=== PATIENT | male | born 1980 | race Caucasian/White ===

== ENCOUNTER 2019-10-30 18:28 | Emergency (ER) | payer OTHER ==
[2019-10-30 18:44] VITALS: BMI 26.6
--- NOTE | 2019-10-30 20:26 | PDOC ---
History of Present Illness - General History Source: Patient Exam Limitations: No Limitations - History of Present Illness Initial Comments: Pt is a 39 yo M, Greek-speaking, with no significant PMH, who is presenting with complaints of L testicular pain and swelling since this morning. Pt states the pain started around 8 am, and is worsened when he is walking. Pt took motrin at 9am with minimal relief. Pt has never had this pain before. Pt denies any fevers/chills, headache, vision changes, syncope, chest pain, palpitations, SOB, nausea/vomiting, abdominal pain, urinary symptoms, diarrhea/constipation, or leg swelling. Allergies: NKDA PCP: None Social: Pt denies any cigarette, alcohol, or drug use. Pt denies any recent travel or sick contacts. Surgical: no relevant history. Family: no relevant history. 10/30/19 22:10 10/30/19 22:12 <Alexandra Garg - Last Filed: 10/31/19 03:01> <Helga Culver - Last Filed: 10/31/19 20:40> - General Chief Complaint: Pain Stated Complaint: ABD PAIN Time Seen by Provider: 10/30/19 20:18 Past History - Travel Traveled outside of the country in the last 30 days: No Close contact w/someone who was outside of country & ill: No - Past Medical History COPD: No - Immunization History Immunization Up to Date: Yes - Psycho Social/Smoking Cessation Hx Smoking History: Never smoked Hx Alcohol Use: No Drug/Substance Use Hx: No <Alexandra Garg - Last Filed: 10/31/19 03:01> <Helga Culver - Last Filed: 10/31/19 20:40> - Past Medical History Allergies/Adverse Reactions: Allergies Allergy/AdvReac Type Severity Reaction Status Date / Time No Known Allergies Allergy Verified 10/30/19 18:42 Home Medications: Ambulatory Orders Acetaminophen [Tylenol] 650 mg PO PRN 10/31/19 Amoxicillin/Potassium Clav [Augmentin 875-125 Tablet] 1 each PO BID #14 tablet 10/31/19 Abd/GI Specific PMHX - Complaint Specific PMHX Colitis: No Diverticulitis: No Gall Bladder Disease: No GERD: No Hepatitis: No Irritable Bowel Synd (IBS): No Pancreatitis: No GI Ulcer Disease: No <Alexandra Garg - Last Filed: 10/31/19 03:01> Review of Systems - Review of Systems Able to Perform ROS?: Yes Is the patient limited Icelandic proficient: No Constitutional: Yes: Weight Stable. No: Chills, Diaphoresis, Fever, Loss of Appetite, Malaise, Weakness HEENTM: No: Recent change in vision, Nose Congestion, Throat Pain, Throat Swelling, Difficulty Swallowing Respiratory: No: Cough, Orthopnea, Shortness of Breath Cardiac (ROS): No: Chest Pain, Edema, Irregular Heart Rate, Lightheadedness, Palpitations, Syncope, Chest Tightness ABD/GI: No: Constipated, Diarrhea, Nausea, Poor Appetite, Poor Fluid Intake, Vomiting : Yes: Testicular Swelling, Testicular Pain. No: Burning, Dysuria, Discharge , Frequency, Flank Pain, Hematuria, Incontinence, Pain, Urgency, Testicular Mass , Lesions Musculoskeletal: No: Back Pain, Joint Pain, Muscle Weakness, Neck Pain Integumentary: No: Rash Neurological: No: Headache, Numbness, Weakness, Unsteady Gait, Dizziness Psychiatric: No: Sleep Pattern Change, Change in Appetite Endocrine: No: Increased Urine, Change in Weight Hematologic/Lymphatic: No: Anemia, Blood Clots, Easy Bleeding, Easy Bruising All Other Systems: Reviewed and Negative <Alexandra Garg - Last Filed: 10/31/19 03:01> *Physical Exam - Vital Signs Last Vital Signs Temp Pulse Resp BP Pulse Ox 98.5 F 76 16 109/71 97 10/30/19 18:42 10/30/19 18:42 10/30/19 18:42 10/30/19 18:42 10/30/19 18:42 - Physical Exam Vitals stable, pt afebrile. Pt in NAD, ambulatory without assistance, normal body habitus. Pt alert and oriented x3. dry wall nailer generally intact, muscular strength and sensation intact. No midline spinal tenderness, step-offs, or crepitus. Head normocephalic, atraumatic. Eyes PERRLA, EOMI. Oropharynx without erythema or exudates, no LAD b/l. No nasal congestion. Hearing intact. Clear heart sounds, S1/S2, no JVD, b/l pedal edema, or heart murmur. Clear lung sounds, no respiratory distress, wheezes, crackles, or accessory muscle use. No abdominal or CVA tenderness to palpation, no rebound, no guarding. Abdomen soft, non-distended, and with normoactive bowel sounds. L groin tenderness, no TTP of testicles b/l, no significant edema, hydrocele or varicocele noted. No penile lesions or discharge. Skin without jaundice or rash. 10/30/19 22:13 <Alexandra Garg - Last Filed: 10/31/19 03:01> - Vital Signs Last Vital Signs Temp Pulse Resp BP Pulse Ox 98.2 F 74 20 112/72 99 10/31/19 03:45 10/31/19 03:45 10/31/19 03:45 10/31/19 03:45 10/31/19 03:45 <Helga Culver - Last Filed: 10/31/19 20:40> ED Treatment Course - LABORATORY CBC & Chemistry Diagram: 10/30/19 23:18 10/30/19 23:18 <Alexandra Garg - Last Filed: 10/31/19 03:01> - LABORATORY CBC & Chemistry Diagram: 10/30/19 23:18 10/30/19 23:18 - ADDITIONAL ORDERS Additional order review: 10/30/19 23:18 RBC 4.44 MCV 92.0 MCHC 33.7 RDW 13.9 MPV 8.1 Neutrophils % 55.6 Lymphocytes % 29.1 Monocytes % 10.9 H Eosinophils % 3.5 Basophils % 0.9 - Medications Given in the ED: ED Medications Discontinued Medications Generic Name Dose Route Start Last Admin Trade Name Devanteq PRN Reason Stop Dose Admin Acetaminophen 650 mg 10/30/19 21:19 10/30/19 21:26 Tylenol - PO 10/30/19 21:20 650 mg ONCE ONE Administration Sodium Chloride 1,000 mls @ 1,000 mls/hr 10/30/19 23:05 10/30/19 23:19 Normal Saline - IV 10/31/19 00:04 1,000 mls/hr ASDIR STA Administration Ampicillin Sodium/Sulbactam 100 mls @ 200 mls/hr 10/31/19 02:55 10/31/19 03: 36 Sodium 1.5 gm/ Sodium Chloride IVPB 10/31/19 03:24 200 mls/hr ONCE ONE Administration <Helga Culver - Last Filed: 10/31/19 20:40> Medical Decision Making - Medical Decision Making Pt was seen at bedside, also will be seen by attending Dr. Culver. Pt presenting with L testicular pain and swelling. Considering torsion vs UTI vs epididymitis. No abdominal TTP, no vomiting or other GI symptoms. Will evaluate with scrotal US. Provided 650 mg PO tylenol for improvement of pain. Will continue to reassess pt and monitor for symptomatic improvement. 10/30/19 22:15 Small b/l hydroceles. 0.8 cm L testicular cyst. No evidence of hydrocele UA, urine culture, and G/C/trichomonas pending. Placed f/u call for g/c/t test. 10/30/19 22:16 UA negative for infection now states pt had temp of 104 this morning. Pt afebrile in ED. Will obtain CBC, CMP, and Ct abd/pelvis with IV contrast. 10/30/19 23:49 CBC and CMP WNL CT abd/pelvis shows acute uncomplicated diverticulitis, will treat with augmentin Pt safe for d/c to home with PCP f/u. Strict return precautions provided with pt understanding. 10/31/19 03:01 <Alexandra Garg - Last Filed: 10/31/19 03:01> - Medical Decision Making 10/31/19 20:39 Patient Name: ELDER BAXTER THIS IS A PRELIMINARY REPORT FROM [facility] DATE OF SERVICE: 2019-10-31 00:31:01 IMAGES: [id number] EXAM: ABDOMEN \T\ PELVIS CT WITH CONTR HISTORY: Left lower quadrant pain COMPARISON: None. FINDINGS: Lung bases are clear other than mild dependent atelectasis and a left lower lobe calcified granuloma. The visualized cardiac chambers are normal size and configuration. Normal liver, gallbladder, pancreas, spleen, adrenal glands and kidneys. A small hiatal hernia is noted. The abdominal small and large bowel are normal. There is no aortic aneurysm. There is no significant retroperitoneal lymphadenopathy. The appendix is normal. There is mild inflammation of the sigmoid colon with inflamed diverticula, indicating acute diverticulitis. No bowel obstruction, abscess or free air.. The urinary bladder and prostate gland are normal. Small amount of pelvic free fluid is identified. There is no significant pelvic lymphadenopathy. Small fat-containing left inguinal hernia is noted. IMPRESSION: Mild uncomplicated sigmoid diverticulitis. <Helga Culver - Last Filed: 10/31/19 20:40> Discharge - Discharge Information Problems reviewed: Yes - Admission No <Alexandra Garg - Last Filed: 10/31/19 03:01> <Helga Culver - Last Filed: 10/31/19 20:40> - Discharge Information Clinical Impression/Diagnosis: Diverticulitis Condition: Stable Disposition: HOME - Additional Discharge Information Prescriptions: Amoxicillin/Potassium Clav [Augmentin 875-125 Tablet] 1 each PO BID #14 tablet - Follow up/Referral Referrals: Lior Hughes MD [Staff Physician] - - Patient Discharge Instructions Patient Printed Discharge Instructions: DI for Diverticulitis Additional Instructions: You were seen in the ER today for abdominal pain. The results of your labs and imaging today showed diverticulitis, which is inflammation of your intestines. Please follow-up with your primary care doctor within 1-2 days to discuss your visit and make sure your symptoms have improved. Please return to the ER if you have any worsening pain, development of fevers or chills, loss of consciousness , inability to tolerate food or fluids, or any other concerns. I have sent medications to your pharmacy. Please take these medications as prescribed. - Post Discharge Activity Work/Back to School Note: Back to Work
--- NOTE | 2019-10-30 20:59 | PDOC ---
Attending Attestation - Resident Resident Name: Alexandra Garg - ED Attending Attestation I have performed the following: I have examined & evaluated the patient, The case was reviewed & discussed with the resident, I agree w/resident's findings & plan - HPI HPI: 10/30/19 23:07 Pt comes with left scrotal pain. 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 He may have had food poisoning, as yesterday he had a fever of 104F and he was "burning up" as per his . No ill contacts. She also noted that his left testicle was elevated and not looking normal. He has no other complaints. Ate only some chicken soup today. Pt deosn't work out and he does no extreme heavy lifting and this is unlikely to be a hernia. Pt has no PMHx and he is currently afebrile. Las motrin was 9am. Pt was given antipyretic in the ER. - Physicial Exam PE: 10/30/19 23:13 Pt has rebound RLQ and LLQ. Greater in the LLQ. Pt has no entral hernia fdefect No flank pain and no rash/briuising on the trunk. Pt has no fever here Pt has normal HEENT and clear lungs Scrotal exam normal Normal extremities - Medical Decision Making 10/30/19 23:50 Scrotal sono is normal - only epididymal cysts Pt has normal UA Urine GC for STD testiing is pending 10/30/19 23:50 Pt's WBC is norrmal 10/31/19 00:09 All labs are normal. Pt is going to CT scan of Abd/Pelvis 10/31/19 03:00 Patient Name: ELDER BAXTER THIS IS A PRELIMINARY REPORT FROM [facility] DATE OF SERVICE: 2019-10-31 00:31:01 IMAGES: [id number] EXAM: ABDOMEN \\T\\ PELVIS CT WITH CONTR HISTORY: Left lower quadrant pain COMPARISON: None. FINDINGS: Lung bases are clear other than mild dependent atelectasis and a left lower lobe calcified granuloma. The visualized cardiac chambers are normal size and configuration. Normal liver, gallbladder, pancreas, spleen, adrenal glands and kidneys. A small hiatal hernia is noted. The abdominal small and large bowel are normal. There is no aortic aneurysm. There is no significant retroperitoneal lymphadenopathy. The appendix is normal. There is mild inflammation of the sigmoid colon with inflamed diverticula, indicating acute diverticulitis. No bowel obstruction, abscess or free air.. The urinary bladder and prostate gland are normal. Small amount of pelvic free fluid is identified. There is no significant pelvic lymphadenopathy. Small fat-containing left inguinal hernia is noted. IMPRESSION: Mild uncomplicated sigmoid diverticulitis. 10/31/19 04:41 Pt will be treated with unasyn 1.5g here and home with augmentin BID x 7 days
[2019-10-30] MEDS ORDERED: ACETAMINOPHEN 325 MG TABLET (FP) PO ONE (21:19)
[2019-10-30] MEDS ORDERED: ACETAMINOPHEN 325 MG TABLET (FP) ONE (21:21)
[2019-10-30 22:50] LABS: PH,URINE 6.5 (5.0-8.0); URINE APPEARANCE Clear; URINE BILIRUBIN Negative (NEGATIVE); URINE COLOR Light yellow; URINE GLUCOSE (UA) Negative (NEGATIVE); URINE KETONE Negative (NEGATIVE); URINE LEUK ESTERASE Negative (NEGATIVE); URINE NITRITE Negative (NEGATIVE); URINE PROTEIN Negative (NEGATIVE); URINE UROBILINOGEN 0.2 mg/dL (0.2-1.0)
[2019-10-30] MEDS ORDERED: SODIUM CHLORIDE 1,000 ML IV STA (23:05)
[2019-10-30 23:25] LABS: BASO % 0.9 % (0-2.0); EOS % 3.5 % (0-4.5); HEMATOCRIT 40.9 % (35.4-49); HEMOGLOBIN 13.8 GM/dL (11.7-16.9); LYMPH % 29.1 % (8-40); MCHC 33.7 g/dl (32.0-35.9); MEAN PLT VOLUME 8.1 fl (7.5-11.1); MONO % 10.9 % (3.8-10.2); NEUT % 55.6 % (42.8-82.8); PLATELET COUNT 215 K/MM3 (134-434); RBC 4.44 M/mm3 (4.00-5.60); RDW 13.9 % (11.9-15.9); WHITE BLOOD COUNT 10.6 K/mm3 (4.0-10.0)
[2019-10-30 23:52] LABS: ALBUMIN 3.4 g/dl (3.4-5.0); BILIRUBIN,TOTAL 0.4 mg/dL (0.2-1); BLOOD UREA NITROGEN 12.5 mg/dL (7-18); CALCIUM 8.5 mg/dL (8.5-10.1); CREATININE 0.7 mg/dL (0.55-1.3)
[2019-10-31] MEDS ORDERED: AMPICILLIN NA/SULBACTAM NA 1.5 GM in SODIUM CHLORIDE 100 ML IVPB ONE (02:55)
[2019-10-31 03:46] VITALS: BP 112/72; PULSE 74; TEMP 98.2
== END 2019-10-31 04:02 | disposition home or self-care (01) ==
LOC: JER 18:28
PROC: 3E03329 Introduction of Other Anti-infective into Peripheral Vein, Percutaneous Approach (ICD-10-PCS; principal; 2019-10-30)
PROC: 3E0337Z Introduction of Electrolytic and Water Balance Substance into Peripheral Vein, Percutaneous Approach (ICD-10-PCS; 2019-10-30)
DX: K57.92 Diverticulitis of intestine, part unspecified, without perforation or abscess without bleeding (principal)
CPT/HCPCS: 36415; 74177-TC; 76870-TC; 80053; 81003; 85025; 87086; 87491; 87591; 87661; 99283-25; J7030; Q9967